=== PATIENT | male | born 1945 | race Caucasian/White ===

== ENCOUNTER 2022-03-17 12:34 | Emergency (ER) | payer MEDICARE ==
[~2022-03-17] VITALS: Ht 177.8 cm; Wt 99.8 kg
[~2022-03-17 12:34] MED LIST: AMLO5 PO; Aspir 8181 MG PO; Calcium Magnes1 EACH; FAMO20; FISH1000 PO; Flomax0.4 MG PO; IBUP200; Icaps Areds Fo1 EACH PO; LISI20 PO; MUSCLE RELAXERS; PRED20 PO; Percocet 5-3251 EACH PO; Prilosec Otc20 MG PO; Saw Palmetto80 MG; VALA500 PO; Zofran4 MG PO; [UNRECOGNIZED DRUG - REMARK]; [UNRECOGNIZED DRUG - REMARK]
== END 2022-03-17 15:25 | disposition home or self-care (01) ==
LOC: ER 12:34
DX: S01.81XA Laceration without foreign body of other part of head, initial encounter (principal); S80.812A Abrasion, left lower leg, initial encounter; S20.212A Contusion of left front wall of thorax, initial encounter; M25.551 Pain in right hip; K21.9 Gastro-esophageal reflux disease without esophagitis; F17.210 Nicotine dependence, cigarettes, uncomplicated; Z79.899 Other long term (current) drug therapy; Z79.82 Long term (current) use of aspirin; V86.59XA Driver of other special all-terrain or other off-road motor vehicle injured in nontraffic accident, initial encounter
CPT/HCPCS: 70450; 71045; 73502; 90714

== ENCOUNTER 2024-05-15 00:24 | Inpatient (IN) | payer OTHER, MEDICARE ==
[~2024-05-15] VITALS: Ht 177.8 cm; Wt 98.1 kg
[~2024-05-15 00:24] MED LIST changes: +FISH OIL 1,4001 EAC2 PO; -FISH1000 PO; -Icaps Areds Fo1 EACH PO; +PRESERVISION A1 EAC1 PO
[2024-05-15] MEDS ORDERED: Lactated Ringer's 1,000 ML IV ONE (00:35)
[2024-05-15] MEDS ORDERED: Diphth,Pertuss(Acell),Tet Vac 0.5 ML VIAL IM ONE (00:35)
[2024-05-15] MEDS ORDERED: Morphine Sulfate 4 MG/1 ML Injection IV ONE (00:35)
[2024-05-15 00:45] LABS: BASOPHILS ABSOLUTE AUTO 0.08 K/mm3 (0.00-0.23); BASOPHILS PERCENT AUTO 1 % (0-2); EOSINOPHILS ABSOLUTE AUTO 0.28 K/mm3 (0.00-0.68); EOSINOPHILS PERCENT AUTO 3 % (0-6); Hematocrit 49.8 % (37.0-53.0); Hemoglobin 17.2 g/dL (13.5-17.5); IMMATURE GRAN ABSOLUTE AUTO 0.09 K/mm3 (0.00-0.10); IMMATURE GRAN PERCENT AUTO 1 % (0-1); LYMPHOCYTES ABSOLUTE AUTO 3.48 K/mm3 (0.84-5.20); LYMPHOCYTES PERCENT AUTO 32 % (21-46); MONOCYTES PERCENT AUTO 10 % (4-13); Mean Corpuscular HGB 31.6 pg (26.0-34.0); Mean Corpuscular HGB Conc 34.5 g/dL (31.5-36.5); Mean Corpuscular Volume 91 fL (80-100); NEUTROPHILS ABSOLUTE AUTO 5.92 K/mm3 (1.96-9.15); NEUTROPHILS PERCENT AUTO 54 % (41-73); Platelet Count 185 K/mm3 (150-400); RDW Coefficient Variation 13.6 % (11.7-14.2); RDW Standard Deviation 46.1 fL (35.1-46.3); Red Blood Cell Count 5.45 M/mm3 (4.30-5.90); White Blood Cell Count 10.95 K/mm3 (4.00-11.30)
[2024-05-15 01:04] LABS: Albumin/Globulin Ratio 1.2 (0.8-1.8); Bilirubin, Total 0.4 mg/dL (0.1-1.0); Bun/Creatinine Ratio 24.5 (12.0-20.0); Calcium, Blood 9.4 mg/dL (8.5-10.1); Creatinine, Blood 0.98 mg/dL (0.60-1.20); Globulin, Blood 3.2 g/dL (2.2-4.0); Potassium, Blood 4.2 mmol/L (3.5-5.5); Total Protein, Blood 7.2 g/dL (6.4-8.2)
[2024-05-15 01:07] LABS: International Normalized Ratio 0.99; Prothrombin Time Results 10.6 Sec (9.7-11.5)
[2024-05-15] MEDS ORDERED: TERB250 PO (01:32)
[2024-05-15] MEDS ORDERED: OMEP20ER PO (01:32)
[2024-05-15] MEDS ORDERED: HYDROmorphone HCl/Pf 1MG SYR IV ONE (03:15)
[2024-05-15 03:29] LABS: Source, Urine Clean Catch
[2024-05-15 03:33] LABS: Bilirubin, Urine Neg (Neg); Blood, Urine 5+ (Neg); Glucose Qualitative, Urine Neg (Neg); Ketones, Urine Neg (Neg); Leukocyte Esterase, Urine Neg (Neg); Nitrite, Urine Neg (Neg); Protein, Urine 2+ (Neg); Specific Gravity, Urine 1.015 (1.003-1.022); Urobilinogen, Urine NORM (Normal)
[2024-05-15] MEDS ORDERED: Lactated Ringer's 1,000 ML IV SCH (04:00)
[2024-05-15] MEDS ORDERED: FLU VACC TS2024-25(6MOS UP)/PF 45 MCG/0.5 ML SYRINGE IM ONE (04:00)
[2024-05-15] MEDS ORDERED: HYDROmorphone HCl/Pf 1MG SYR IV PRN (04:00)
[2024-05-15] MEDS ORDERED: Acetaminophen 325 MG TABLET PO PRN (04:00)
[2024-05-15] MEDS ORDERED: Naloxone HCl 0.4MG / ML 1ML Vial IV PRN (04:00)
[2024-05-15] MEDS ORDERED: OxyCODONE HCL 5 MG TAB PO PRN (04:00)
[2024-05-15] MEDS ORDERED: HydrALAZINE HCl 20 MG / ML 1ML Vial IV PRN (04:00)
[2024-05-15 04:18] LABS: Appearance, Urine Clear (Clear); Color, Urine Yellow (P-Yellow)
[2024-05-15 04:20] LABS: Bacteria Few /hpf; Red Blood Cells, Urine 0-2 /hpf (0-2); Squamous Epithelial Cells Few /hpf (Few); White Blood Cells, Urine 0-2 /hpf (0-5)
[2024-05-15 05:48] VITALS: BP 139/83
[2024-05-15] MEDS ORDERED: Omeprazole 20 MG CapCR PO SCH ×2 (06:00→16:20)
[2024-05-15 07:13] VITALS: BP 139/76
--- NOTE | 2024-05-15 07:30 | NUR ---
PT'S HERB AND SHOULDER SWOLLEN AND FRIM. PT HAS A STRONG RADIAL PULSE ON THE R SIDE. FINGERS ARE WARM. HE IS ABLE TO MOVE HIS FINGERS. R ARM IN SLING. PT REPORTS SOME NUMBNESS TO HIS RIGHT HAND AT BASELINE R/T NEUROPATHY. PT IS ABLE TO FEEL TOUCH. DR. CAMARGO NOTIFIED OF OBSERVATIONS.
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
--- NOTE | 2024-05-15 08:00 | NUR ---
DR. JIMENEZ NOTIFIED THAT PT ARRIVED FROM ER ON 15L NON-REBREATHER BUT SATURATING 98%. NOTIFIED OF PLAN TO TRANSITION PT TO NC. PT TRANSITIONED TO 4L O2 VIA NC AND PT TOLERATING WELL WITH O2 SATURATIONS IN 94-96%.
[2024-05-15] MEDS ORDERED: Docusate Sodium 100 MG Cap PO SCH (09:00)
[2024-05-15] MEDS ORDERED: Nicotine 21 MG PATCH TOP SCH (12:00)
[2024-05-15 15:41] VITALS: BP 145/84
--- NOTE | 2024-05-15 17:25 | NUR ---
DRESSING PLACED OVER R WRIST SKIN TEAR. DRESSING PLACED OVER R KNEE ABRASION.
--- NOTE | 2024-05-15 18:37 | NUR ---
SHIFT SUMMARY PAIN HAS BEEN MANAGED WITH TYLENOL THIS SHIFT. R ARM IN SLING AND SUPPORTED WITH PILLOWS. R UPPER ARM/SHOULDER REMAINS SWOLLEN. ICE APPLIED INTERMITTENTLY FOR COMFORT. PT USES CALL LIGHT APPROPRIATELY. VSS. FAMILY PRESENT AND SUPPORTIVE.
[2024-05-15 19:33] VITALS: BP 142/68
[2024-05-16 03:41] VITALS: BP 150/80
[2024-05-16] MEDS ORDERED: Omeprazole 20 MG CapCR PO SCH (06:00)
[2024-05-16 06:15] LABS: Source, Urine Foley catheter
[2024-05-16 06:17] LABS: Appearance, Urine Clear (Clear); Bilirubin, Urine Neg (Neg); Blood, Urine 1+ (Neg); Color, Urine Yellow (P-Yellow); Glucose Qualitative, Urine Neg (Neg); Ketones, Urine Neg (Neg); Leukocyte Esterase, Urine 1+ (Neg); Nitrite, Urine Neg (Neg); Protein, Urine 2+ (Neg); Urobilinogen, Urine NORM (Normal)
--- NOTE | 2024-05-16 06:25 | NUR ---
TELEMETRY EVENT: 8 BEAT RUN OF V-TACH. CALL RECEIVED FROM TELEMETRY AT 0625 FROM KATHARINA PEÑA THAT PT HAD A 8 BEAT RUN OF VTACH. THIS RN IMMEDIATELY WENT TO PT'S BEDSIDE. PT WAS A/O X4, DENIED SOB OR CHEST PAIN. PT REPORTED FEELING "FINE" BUT HAD DISCOMFORT POST MALHOTRA INSERTION. PT ALSO NOTED TO HAVE INCREASED SWELLING IN RIGHT SHOULDER. WILL CALL HOSPITALIST WITH UPDATE.
[2024-05-16 06:29] LABS: Hyaline Casts 0-2 /lpf (0-2)
[2024-05-16 06:30] LABS: Red Blood Cells, Urine 0-2 /hpf (0-2); White Blood Cells, Urine 0-2 /hpf (0-5)
[2024-05-16 06:31] LABS: Amorphous Light (0-Heavy); Calcium Oxalate Crystals Rare /hpf; Mucus Light (0-Heavy)
[2024-05-16 06:33] LABS: Bacteria Few /hpf; Renal Epithelial Rare /hpf (0-Rare); Squamous Epithelial Cells Rare /hpf (Few)
[2024-05-16 06:42] VITALS: BP 133/71
[2024-05-16 07:25] VITALS: BP 131/74
[2024-05-16 07:43] LABS: Hematocrit 37.3 % (37.0-53.0); Hemoglobin 12.6 g/dL (13.5-17.5); Mean Corpuscular HGB 31.3 pg (26.0-34.0); Mean Corpuscular HGB Conc 33.8 g/dL (31.5-36.5); Mean Corpuscular Volume 93 fL (80-100); Mean Platelet Volume 10.5 fL (9.1-12.4); Platelet Count 146 K/mm3 (150-400); RDW Coefficient Variation 13.6 % (11.7-14.2); RDW Standard Deviation 46.8 fL (35.1-46.3); Red Blood Cell Count 4.02 M/mm3 (4.30-5.90); White Blood Cell Count 10.43 K/mm3 (4.00-11.30)
--- NOTE | 2024-05-16 07:52 | NUR ---
CALL TO HOSPITALIST. CALL TO DR. ALCAZAR AND NOTIFIED DR OF TELE EVENT, PAIN WITH MALHOTRA PLACEMENT, AND INCREASED SWELLING IN RIGHT SHOULDER. NEW ORDERS FOR MAGNESIUM LEVEL ORDERED AND INSTRUCTED TO KEEP MALHOTRA LONG PT IS TOLERATING PLACEMENT. VSS.
--- NOTE | 2024-05-16 07:54 | NUR ---
SHIFT SUMMARY NOC. PT A/O X4, RIGHT SHOULDER IN SLING. ICE PACK IN PLACE, PT DID NOT TOLERATE ICE MOST OF NIGHT. NEW ORDERS FOR MALHOTRA OBTAINED AND PLACED, R/T URINARY RETENTION. URINE SAMPLE SENT TO LAB FOR PROCESSING. PT MEDICATED FOR PAIN WITH REPORTED RELIEF. CAP REFILL AND PULSES INTACT. BED IN LOWEST POSITION, CALL LIGHT IN REACH.
[2024-05-16 08:06] LABS: Bun/Creatinine Ratio 28.6 (12.0-20.0); Calcium, Blood 9.1 mg/dL (8.5-10.1); Creatinine, Blood 0.84 mg/dL (0.60-1.20); Magnesium, Blood 2.3 mg/dL (1.6-2.4); Potassium, Blood 4.4 mmol/L (3.5-5.5)
[2024-05-16] MEDS ORDERED: CALCIUM-MAGNES1 EAC9 PO (11:13)
[2024-05-16 14:56] VITALS: BP 146/75
--- NOTE | 2024-05-16 17:45 | NUR ---
SHIFT SUMMARY PAIN HAS BEEN MANAGED WITH OXYCODONE AND TYLENOL. PT IS A 1 ASSIST WHEN OOB. HE SAT UP TO THE CHAIR TODAY, PT REPORTED INCREASED DISCOMFORT WHEN SITTING UP TO THE CHAIR. PT ENCOURAGED TO USE INCENTIVE SPROMETER. O2 DECREASED TO 3L O2 VIA NC. PT USES CALL LIGHT APPROPRIATELY. FAMILY HAS BEEN AT THE BEDSIDE FOR SUPPORT. R ARM REMAINS SIGNIFICANTLY SWOLLEN, CAP REFIL WNL, PULSE STRONG AND FINGERS WARM. PT TOLERATING R ARM IN SLING WELL.
[2024-05-16 20:19] VITALS: BP 134/80
[2024-05-17 04:18] VITALS: BP 116/79
[2024-05-17 07:14] VITALS: BP 137/67
[2024-05-17] MEDS ORDERED: Polyethylene Glycol 3350 17 gm PO SCH (09:00)
[2024-05-17 10:59] LABS: Hematocrit 35.8 % (37.0-53.0); Hemoglobin 11.9 g/dL (13.5-17.5); Mean Corpuscular HGB 31.3 pg (26.0-34.0); Mean Corpuscular HGB Conc 33.2 g/dL (31.5-36.5); Mean Corpuscular Volume 94 fL (80-100); Mean Platelet Volume 10.7 fL (9.1-12.4); Platelet Count 162 K/mm3 (150-400); RDW Coefficient Variation 13.6 % (11.7-14.2); RDW Standard Deviation 46.3 fL (35.1-46.3); White Blood Cell Count 12.73 K/mm3 (4.00-11.30)
[2024-05-17 13:29] LABS: BASOPHILS PERCENT MAN 0 % (0-2); EOSINOPHILS PERCENT MAN 0 % (0-6); LYMPHOCYTES ABSOLUTE MAN 0.76 K/mm3 (0.84-5.20); LYMPHOCYTES PERCENT MAN 6 % (21-46); MONOCYTES ABSOLUTE MAN 1.52 K/mm3 (0.16-1.47); MONOCYTES PERCENT MAN 12 % (4-13); NEUTROPHILS ABSOLUTE MAN 10.43 K/mm3 (1.96-9.15); SEG NEUTROPHILS PERCENT MAN 82 % (41-73); TOTAL CELLS COUNTED 100
[2024-05-17 14:46] VITALS: BP 158/74
--- NOTE | 2024-05-17 17:24 | NUR ---
SHIFT SUMMARY PT PAIN MANAGED WELL PER EMAR, USING SLING T/O SHIFT. UP IN CHAIR FOR MUCH OF SHIFT. R ARM REMAINS SWOLLEN BUT HAND WARM TO TOUCH AND CAP REFILL <3. REPORTS SENSATION OF NEEDING TO HAVE BOWEL MOVEMENT, MIRALAX GIVENN PER ORDERS. PT REPORTS FEELING BETTER SINCE GETTING UP TO CHAIR. CONTINUES TO USE INCENTIVE SPIROMETER.
[2024-05-17 19:50] VITALS: BP 145/70
[2024-05-18 04:04] VITALS: BP 145/70
--- NOTE | 2024-05-18 05:11 | NUR ---
SHIFT SUMMARY FLORENCIO WAS ALERT AND FULLY ORIENTED ON ASSESMENT. VSS, SWELLING TO R SHOULDER FEELS LESS FIRM/TIGHT. CIRCULATION AND SENSATION TO EXTREMETIES INTACT. PAIN WELL MANAGED. SLING IN PLACE TO R SHOULDER, CATHETER SECURE DRAINING DARK YELLOW URINE. NO ACUTE EVENTS TONIGHT. PT RESTING
[2024-05-18 07:36] VITALS: BP 145/70
--- NOTE | 2024-05-18 10:12 | NUR ---
ASSUMED CARE OF PT AT 0815 WITH REPORT. PT SITTING ON SIDE OF BED AFTER EATING BREAKFAST AND TOLERATING WELL. R ARM IN A SLING. [facility] CHECK WNL. DENIES PAIN AT THIS TIME. ABLE TO TAKE DEEP BREATHS WITH NO PAIN. REPORTS HE DOES HAVE PAIN TO CHEST WHEN HE COUGHS. OT HAS WORKED WITH PT SINCE REPORT AND NOW IN A CHAIR WATCHING TV.
[2024-05-18 15:00] VITALS: BP 148/77
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
--- NOTE | 2024-05-18 16:41 | NUR ---
SHIFT SUMMARY PT UP TO CHAIR THROUGH THE MORNING AND THEN TO BED FOR AN AFTERNOON NAP. 02 NOW AT 2L/M WITH SATS 91% ON CONTINUOUS PULSE OX. MEDICATED FOR PAIN THIS AFTERNOON AFTER SLING CHANGED OUT. DIDN'T EAT LUNCH OFFERED BUT DID EAT CHEETOS GIVEN TO HIM BY FAMILY. PLAN FOR HIM TO STAY THROUGH FRIDAY AND DUE SURGERY ON FRIDAY PER DR. CAMARGO.
[2024-05-18 20:01] VITALS: BP 151/63
[2024-05-19 04:41] VITALS: BP 143/75
--- NOTE | 2024-05-19 06:35 | NUR ---
NOC SHIFT SUMMARY PT ORIENTED X4, VSS, PAIN TO R SHOULDER X1, PRNS GIVEN WITH RELIEF. SEE EMAR FOR DETAILS. SR ON TELE, SVT X1 LASTING APPROXIMATELY 10 SECONDS. PT SLEEPING AND ASYMPTOMATIC. PLEASANT AND COOPERATIVE. R SHOULDER IN SLING, NEUROVASCULAR STATUS INTACT. O2 INCREASED TO 3L DUE TO DESATURATION WHILE SLEEPING INTERMITTENTLY. TOLERATED WELL. WILL PASS ON DAY RN
[2024-05-19 06:56] VITALS: BP 146/78
[2024-05-19 06:57] VITALS: BP 146/78
[2024-05-19] MEDS ORDERED: Magnesium Hydroxide Conc 10 ML UDC PO PRN (10:20)
[2024-05-19] MEDS ORDERED: Docusate Sodium/Senna 1 Tab PO SCH (10:20)
--- NOTE | 2024-05-19 14:08 | NUR ---
PT SAT ON BSC FOR APPROX 40 MIN. PT HAD GAS BUT UNABLE TO PRODUCE BM. PT ASSISTED BACK TO BED. CALL LIGHT IN REACH.
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
[2024-05-19 15:04] VITALS: BP 154/76
--- NOTE | 2024-05-19 16:23 | NUR ---
SHIFT SUMMARY PT DID WELL TODAY AND WAS MEDICATED ONCE WITH PAIN MEDICINE. R ARM IN SLING. TRIED TO HAVE BM TODAY BUT WAS ONLY PASSING GAS. ADDITIONAL MEDS ADDED TO EMAR TO ASSIST WITH CONSTIPATION. PLAN IS TO BE NPO AFTER MID-NIGHT WITH SHOULDER SURGERY TOMORROW. PT HAS BEEN ON ROOM AIR O2 AND BIOX IN LOW 90'S WHICH WAS ACCEPTABLE DUE TO SMOKING HISTORY. PT HAD MULTIPLE VISITORS DURING THE SHIFT WHICH KEPT HIM IN GOOD SPIRITS. NO ISSUES NOTED.
[2024-05-19 19:12] VITALS: BP 143/65
[2024-05-19] MEDS ORDERED: Polyethylene Glycol 3350 17 gm PO SCH (21:00)
[2024-05-20 03:07] VITALS: BP 156/77
[2024-05-20 05:13] LABS: BASOPHILS ABSOLUTE AUTO 0.05 K/mm3 (0.00-0.23); BASOPHILS PERCENT AUTO 1 % (0-2); EOSINOPHILS ABSOLUTE AUTO 0.19 K/mm3 (0.00-0.68); EOSINOPHILS PERCENT AUTO 2 % (0-6); Hemoglobin 10.2 g/dL (13.5-17.5); IMMATURE GRAN ABSOLUTE AUTO 0.09 K/mm3 (0.00-0.10); IMMATURE GRAN PERCENT AUTO 1 % (0-1); LYMPHOCYTES ABSOLUTE AUTO 1.04 K/mm3 (0.84-5.20); LYMPHOCYTES PERCENT AUTO 10 % (21-46); MONOCYTES ABSOLUTE AUTO 2.01 K/mm3 (0.16-1.47); MONOCYTES PERCENT AUTO 19 % (4-13); Mean Corpuscular HGB 31.5 pg (26.0-34.0); Mean Corpuscular Volume 93 fL (80-100); Mean Platelet Volume 10.1 fL (9.1-12.4); NEUTROPHILS ABSOLUTE AUTO 7.46 K/mm3 (1.96-9.15); NEUTROPHILS PERCENT AUTO 69 % (41-73); Platelet Count 213 K/mm3 (150-400); RDW Coefficient Variation 13.2 % (11.7-14.2); RDW Standard Deviation 45.1 fL (35.1-46.3); Red Blood Cell Count 3.24 M/mm3 (4.30-5.90); White Blood Cell Count 10.84 K/mm3 (4.00-11.30)
[2024-05-20 05:36] LABS: Bun/Creatinine Ratio 22.2 (12.0-20.0); Calcium, Blood 8.9 mg/dL (8.5-10.1); Creatinine, Blood 0.85 mg/dL (0.60-1.20); Potassium, Blood 4.2 mmol/L (3.5-5.5)
--- NOTE | 2024-05-20 06:30 | NUR ---
SHIFT SUMMARY NOC. PT A/O X4, RIGHT SHOULDER IN SLING, POLAR PACK IN PLACE. MALHOTRA PATENT AND DRAINING TO GRAVITY. PT NPO SINCE 0000 ASIDE FROM ORAL PAIN MEDS X1 THIS AM. SIGNIFICANT BRUSING NOTED ON RIGHT SHOULDER AND ARM, CAP REFILL LESS THAN 3 SECONDS SENSATION AT BASELINE D/T HX OF NEUROPATHY. BED IN LOWEST POSITION, CALL LIGHT IN REACH.
[2024-05-20 07:31] VITALS: BP 158/100
[2024-05-20 07:32] VITALS: BP 166/80
[2024-05-20] MEDS ORDERED: NS 1,000 ML IV SCH (08:35)
--- NOTE | 2024-05-20 09:47 | NUR ---
PT REPORTED HAVING SOME QUESTIONS ABOUT THE SURGERY THAT IS PLANNED FOR PT'S RIGHT SHOULDER. DR. VALENZUELA NOTIFIED THAT PT WOULD LIKE TO TALK WITH HER REGARDING SURGICAL PLAN OF CARE.
[2024-05-20] MEDS ORDERED: Polyethylene Glycol 3350 17 gm PO ONE (13:20)
[2024-05-20] MEDS ORDERED: Docusate Sodium/Senna 1 Tab PO ONE (13:20)
[2024-05-20 14:45] VITALS: BP 153/84
--- NOTE | 2024-05-20 18:35 | NUR ---
SHIFT SUMMARY PAIN HAS BEEN MANAGED WITH TYLENOL AND OXYCODONE. PT IS A 1 ASSIST WHEN OOB. BOWEL CARE CONTINUED TODAY. PLAN FOR SURGERY POSSIBLY TOMORROW, PT WILL BE NPO AT MIDNIGHT. PT USES CALL LIGHT APPROPRIATELY. FAMILY AT BEDSIDE FOR SUPPORT.
[2024-05-20 20:23] VITALS: BP 152/72
[2024-05-21] VITALS (21 sets, daily range): BP systolic 114–160; BP diastolic 52–100
--- NOTE | 2024-05-21 04:56 | NUR ---
SHIFT SUMMARY NOC. PT A/O X4, RIGHT SHOULDER IN SLING WITH POLAR PACK IN PLACE. MALHOTRA PATENT AND DRAINING TO GRAVITY. FLUIDS RUNNING PER EMAR. PT NPO SINCE 0000 ASIDE FROM SIP OF WATER FOR ORAL PAIN PILLS. CAP REFILL LESS THAN 3 SECONDS, SENSATION INTACT AT BASELINE, HX OF NEUROPATHY. BED IN LOWEST POSITION, CALL LIGHT IN REACH.
[2024-05-21 05:29] LABS: BASOPHILS ABSOLUTE AUTO 0.07 K/mm3 (0.00-0.23); BASOPHILS PERCENT AUTO 1 % (0-2); EOSINOPHILS ABSOLUTE AUTO 0.11 K/mm3 (0.00-0.68); EOSINOPHILS PERCENT AUTO 1 % (0-6); Hematocrit 30.3 % (37.0-53.0); Hemoglobin 10.1 g/dL (13.5-17.5); IMMATURE GRAN ABSOLUTE AUTO 0.15 K/mm3 (0.00-0.10); IMMATURE GRAN PERCENT AUTO 1 % (0-1); LYMPHOCYTES ABSOLUTE AUTO 1.21 K/mm3 (0.84-5.20); LYMPHOCYTES PERCENT AUTO 9 % (21-46); MONOCYTES ABSOLUTE AUTO 2.34 K/mm3 (0.16-1.47); MONOCYTES PERCENT AUTO 17 % (4-13); Mean Corpuscular HGB Conc 33.3 g/dL (31.5-36.5); Mean Corpuscular Volume 93 fL (80-100); Mean Platelet Volume 9.9 fL (9.1-12.4); NEUTROPHILS ABSOLUTE AUTO 10.07 K/mm3 (1.96-9.15); NEUTROPHILS PERCENT AUTO 72 % (41-73); Platelet Count 249 K/mm3 (150-400); RDW Coefficient Variation 13.3 % (11.7-14.2); RDW Standard Deviation 45.3 fL (35.1-46.3); Red Blood Cell Count 3.26 M/mm3 (4.30-5.90); White Blood Cell Count 13.95 K/mm3 (4.00-11.30)
[2024-05-21 06:01] LABS: Bun/Creatinine Ratio 28.7 (12.0-20.0); Calcium, Blood 8.9 mg/dL (8.5-10.1); Creatinine, Blood 0.8 mg/dL (0.60-1.20); Potassium, Blood 4.1 mmol/L (3.5-5.5)
[2024-05-21] MEDS ORDERED: CeFAZolin Sodium 2,000 MG in NS 100 ML IV SCH (09:15)
[2024-05-21] MEDS ORDERED: Lactated Ringer's 1,000 ML IV SCH (09:15)
[2024-05-21] MEDS ORDERED: Chlorhexidine Mouth Care 15 ML UDC MT SCH ×2 (09:15→09:55)
[2024-05-21] MEDS ORDERED: Acetaminophen 500 MG Tab PO SCH (09:15)
[2024-05-21] MEDS ORDERED: Tranexamic Acid 100 ML IV SCH (09:18)
--- NOTE | 2024-05-21 09:35 | NUR ---
Gone for Procedure Pt A&O x4. VSS. Spo2 > 92% on 1L NC. Pt w/ harsh, nonproductive cough. Monitor showing SR w/ BBB & PVCs. R arm in sling w/ cooling pad in place. Lobo cath patent & draining yellow urine. Pt NPO, taken for surgery at approx 0930.
[2024-05-21] MEDS ORDERED: Ondansetron HCl 2 MG / ML 2ML Vial ONE ×3 (09:46→15:15)
[2024-05-21] MEDS ORDERED: Midazolam HCl 1MG / ML 2ML Vial ONE (09:46)
[2024-05-21] MEDS ORDERED: Dexamethasone Sod Phos 10 MG/ML 1ML VIAL ONE (09:46)
[2024-05-21] MEDS ORDERED: FentaNYL Citrate 50 MCG/ML 2 ML Injection ONE ×2 (09:46→13:41)
[2024-05-21] MEDS ORDERED: Lidocaine HCl 2% 20 ML MDV ONE (09:46)
[2024-05-21] MEDS ORDERED: propofoL 20 ML IV ONE ×2 (09:46→13:39)
[2024-05-21] MEDS ORDERED: Bupivacaine 0.5% HCl 5 MG/ML 30MLVIAL ONE (09:49)
[2024-05-21] MEDS ORDERED: Lidocaine 2%-Epineph 1:200000 20 ML SDV ONE (09:55)
--- NOTE | 2024-05-21 09:59 | NUR ---
TIME OUT FOR SUPER CLAVIC BLOCK BY DR HUMPHREY.
--- NOTE | 2024-05-21 10:07 | NUR ---
PT TO SDS WITH 20G IV IN PT LEFT AC AND 24G IV IN LEFT FA
--- NOTE | 2024-05-21 10:08 | NUR ---
PROCEDURE STARTED BY DR HUMPHREY WITH DR SCHAFER AT BEDSIDE. PT IS ON 2L 02. VERSED AND FENTANYL GIVEN PRIOR TO PROCEDURE BY DR HUMPHREY. SA02 PROBE ON PT
[2024-05-21] MEDS ORDERED: Phenylephrine HCl 100 MCG/ML-NS 10MLSYR (1MG/10ML) ONE (10:39)
[2024-05-21] MEDS ORDERED: ePHEDrine Sulfate 50 MG/ML 1ML Injection ONE (10:43)
[2024-05-21] MEDS ORDERED: Phenylephrine HCl 10mg/ml 1 ml Vial ONE (12:12)
--- NOTE | 2024-05-21 15:40 | NUR ---
ARRIVAL FROM PACU PT ARRIVES FROM PACU AROUND 1530. REPORT RECIEVED FROM PACU NURSE. TXA FINISHING UP, DRIPPING TO GRAVITY. DRESSING TO RIGHT SHOULDER INTACT, MINIMAL OOZING MARKED, BY PACU NURSE. SBP STABLE, HR IN THE 80'S. O2 >90% ON 2L VIA NC. WILL CONTINUE TO MONITOR PT.
--- NOTE | 2024-05-21 16:49 | NUR ---
Shift Summary PT ALERT AND ORIENTED TO ALL. PT POST OP ORIF OF RIGHT HUMEROUS. DRESSING WITH SOME OOZING, MARKED BY EMPLOYEE OPERATIONS EXAMINER. SBP STABLE, HR IN THE 80'S, 02 >92% ON 2L VIA NC. PT DENIES HAVING PAIN AT THIS TIME. WILL MANAGE PER EMAR. MALHOTRA INTACT, DRAINING TO GRAVITY. FAMILY AT BEDSIDE. WILL MONITOR AND REPORT TO NEXT NURSE.
--- NOTE | 2024-05-21 18:16 | NUR ---
THIS NURSE ASSUMING CARE OF PATIENT. POD 0 ORIF OF RIGHT HUMEROUS. AQUACEL DRESSING WITH SMALL AMOUNT OF DRAINAGE, OUTLINED WITH MARKER AND REMAINING WITHIN MARGINS. A&O X4, VSS. 2L NC. EATING AND DRINKING WITHOUT DIFFICULTY. CATHETER DRAINING YELLOW URINE. PAIN MANAGED AT THIS TIME.
[2024-05-22 03:39] VITALS: BP 149/83
--- NOTE | 2024-05-22 04:13 | NUR ---
SHIFT SUMMARY POD1 R HUMERAL ORIF. AQUACEL REMAINS C/D/I, MINIMAL SS DRAINAGE NOTED. SIGNIFIGANT SWELLING AND BRUISING NOTED IN THIS EXTREMITY. IT HAS REMAINED ON A PILLOW W/ A POLAR PACK. GOOD CAP REFILL, STRONG RADIAL PULSE, AND PT CAN WIGGLE HIS FINGERS ON COMMAND. JEY MORE FEELS HEAVY. PAIN HAS SLOWLY INCREASED T/O THE NIGHT, MEDICATED PER EMAR W/OKAY RESULTS. PT IS STOIC. PT TOLLERATED AMBULATING TO THE [facility] X2 FOR A BM. THEY WERE BOTH LIQUID. BLADDER TRAINING OCCURED T/O THE NIGHT. PT ONLY FELT THE URGE TO VOID TWICE GOOD URINE OUTPUT. GOOD PO INTAKE. VSS, O2 HAS BEEN WEANED TO RA/1L. PTDENIES INCREASE IN WOB OR CP. OVERALL, NO ACUTE EVENTS NOTED T/O THE NIGHT. PLAN TO BEGIN THERAPY AND CONTINUE PAIN MANAGEMENT. THE PATIENT IS CURRENTLY SLEEPING, IN NO DISTRESS, CALL LIGHT IN REACH
[2024-05-22 05:21] LABS: BASOPHILS ABSOLUTE AUTO 0.03 K/mm3 (0.00-0.23); BASOPHILS PERCENT AUTO 0 % (0-2); EOSINOPHILS PERCENT AUTO 0 % (0-6); Hematocrit 27.6 % (37.0-53.0); Hemoglobin 9.3 g/dL (13.5-17.5); IMMATURE GRAN ABSOLUTE AUTO 0.15 K/mm3 (0.00-0.10); IMMATURE GRAN PERCENT AUTO 1 % (0-1); LYMPHOCYTES ABSOLUTE AUTO 0.87 K/mm3 (0.84-5.20); LYMPHOCYTES PERCENT AUTO 5 % (21-46); MONOCYTES ABSOLUTE AUTO 2.88 K/mm3 (0.16-1.47); MONOCYTES PERCENT AUTO 18 % (4-13); Mean Corpuscular HGB 31.3 pg (26.0-34.0); Mean Corpuscular HGB Conc 33.7 g/dL (31.5-36.5); Mean Corpuscular Volume 93 fL (80-100); Mean Platelet Volume 9.3 fL (9.1-12.4); NEUTROPHILS ABSOLUTE AUTO 12.43 K/mm3 (1.96-9.15); NEUTROPHILS PERCENT AUTO 76 % (41-73); Platelet Count 246 K/mm3 (150-400); RDW Coefficient Variation 13.4 % (11.7-14.2); RDW Standard Deviation 45.6 fL (35.1-46.3); Red Blood Cell Count 2.97 M/mm3 (4.30-5.90); White Blood Cell Count 16.36 K/mm3 (4.00-11.30)
[2024-05-22 05:51] LABS: Bun/Creatinine Ratio 30.3 (12.0-20.0); Calcium, Blood 8.7 mg/dL (8.5-10.1); Creatinine, Blood 0.69 mg/dL (0.60-1.20); Potassium, Blood 4.4 mmol/L (3.5-5.5)
[2024-05-22 07:10] VITALS: BP 154/79
--- NOTE | 2024-05-22 08:52 | NUR ---
DRESSING TO R ELBOW CHANGED. PT HAS SMALL SKIN TEAR FROM SWELLING SUPERIOR TO R ELBOW, HEAVY SEROUS FLUID OOZING OUT. PLACED ABSORBENT PAD ON ELBOW HELD IN PLACE WITH SLING. NOTIFIED PRIMARY RN OF CHANGE. PT TOLERATES WELL AND DENIES PAIN TO THAT AREA OF ARM.
[2024-05-22 14:38] VITALS: BP 157/87
--- NOTE | 2024-05-22 18:09 | NUR ---
SHIFT SUMMARY POD1 R SHOULDER ORIF, A/OX4, VSS, TOLERATING PO, PAIN MANAGED PER EMAR, ABLE TO USE BSC T/O THE SHIFT, MALHOTRA IN PLACE WITH BLADDER TRAINING STARTED DURING PRIOR NOC SHIFT, WILL DC TOMORROW UNLESS PROVIDER STATES OTHERWISE, UP TO CHAIR THROUGH MOST OF THE SHIFT TODAY, ICE TO R SHOULDER FOR SWELLING. NO ACUTE EVENTS THIS SHIFT, CALL LIGHT IN REACH.
[2024-05-22 18:41] VITALS: BP 145/71
--- NOTE | 2024-05-23 04:20 | NUR ---
SHIFT SUMMARY POD1 R SHOULDER ORIF. PAIN MANAGED UTILIZING NPIS AND PER EMAR. RUE IN SLING, CRYO MACHINE IN PLACE. RUE WITH MARKED SWELLING. CMS INTACT DISTAL TO INCISION. AQUACELL TO INCISION C/D/I, SMALL AMOUNT OF DRAINAGE / SHADOW AT LOWER PORTION OF AQUACELL. UNCHANGED DRAINAGE OVER SHIFT. PT ABLE TO REST DURING SHIFT. PT VOICED UNDERSTANDING OF PLAN OF CARE, DENIES QUESTIONS/CONCERNS AT THIS TIME.
[2024-05-23 05:19] VITALS: BP 153/80
[2024-05-23 07:11] VITALS: BP 168/74
[2024-05-23] MEDS ORDERED: MIRALAX17 GM PO (12:27)
[2024-05-23] MEDS ORDERED: Percocet 5-3251 EACH PO (12:28)
--- NOTE | 2024-05-23 13:56 | NUR ---
DISCHARGE SUMMARUY POD2 R SHOULDER ORIF, A/OX4, VSS, TOLERATING PO, PAIN WELL MANAGED, MALHOTRA REMOVED TODAY AND ABLE TO VOID POST REMOVAL, MULTIPLE BM'S TODAY. AQUACELL DRESSING CHANGED D/T MODERATE AMT OF DRAINAGE ON DISTEAL END, MEPITEL DRESSING TO L WRIST CHANGED D/T IT PEELING UP ON BOTH ENDS. DISCUSSED DC INSTRUCTIONS INCLUDING HOME CARE, MEDICATIONS, AND FOLLOW UP APPOINTMENTS. NO QUESTIONS AT THIS TIME, ADDITIONAL DRESSINGS PROVIDED FOR CHANGING AT HOME PRIOR TO FOLLOW UP.
== END 2024-05-23 13:42 | disposition home health service (06) | DRG 493 ==
LOC: ER 00:24 → SURS 03:56
PROVIDERS: Family Medicine; Orthopaedic Surgery; Student in an Organized Health Care Education/Training Program; ADMIT Surgery
PROC: 0PSC04Z Reposition Right Humeral Head with Internal Fixation Device, Open Approach (ICD-10-PCS; principal; 2024-05-21 10:00)
DX: S42.211A Unspecified displaced fracture of surgical neck of right humerus, initial encounter for closed fracture (principal); E87.1 Hypo-osmolality and hyponatremia; S22.31XA Fracture of one rib, right side, initial encounter for closed fracture; S27.0XXA Traumatic pneumothorax, initial encounter; S42.201A Unspecified fracture of upper end of right humerus, initial encounter for closed fracture; V69.49XA Driver of heavy transport vehicle injured in collision with other motor vehicles in traffic accident, initial encounter; S01.411A Laceration without foreign body of right cheek and temporomandibular area, initial encounter; S51.812A Laceration without foreign body of left forearm, initial encounter; S51.811A Laceration without foreign body of right forearm, initial encounter; K59.00 Constipation, unspecified; Z66 Do not resuscitate; Z79.899 Other long term (current) drug therapy; Z79.82 Long term (current) use of aspirin; Z79.891 Long term (current) use of opiate analgesic; M54.9 Dorsalgia, unspecified; G89.29 Other chronic pain; K21.9 Gastro-esophageal reflux disease without esophagitis; I10 Essential (primary) hypertension; Z90.89 Acquired absence of other organs; Z98.890 Other specified postprocedural states; F17.210 Nicotine dependence, cigarettes, uncomplicated; G89.11 Acute pain due to trauma; Z71.6 Tobacco abuse counseling; D64.9 Anemia, unspecified
CPT/HCPCS: 36415; 51702; 70450; 70486; 71045; 71260; 72125; 73030; 73090; 73130; 73200; 73201; 74177; 80048; 80053; 81001; 83690; 83735; 84484; 85007; 85025; 85027; 85610; 85730; 86850; 86900; 86901; 87086; 90471; 90715; 94762; 96361; 96374-59; 96375-59; 97110; 97112; 97161; 97165; 97530; 97535; 99285-25; A9270; J0690; J1100; J1170; J2250; J2270; J2371; J2405; J2704; J3010; J7030; J7120; Q9967

== ENCOUNTER 2024-06-02 14:14 | Emergency (ER) | payer OTHER, MEDICARE ==
[~2024-06-02] VITALS: Ht 177.8 cm; Wt 99.8 kg
[~2024-06-02 14:14] MED LIST changes: +CALCIUM-MAGNES1 EAC9 PO; +MIRALAX17 GM PO; +OMEP20ER PO; +TERB250 PO
[2024-06-02 16:03] LABS: BASOPHILS ABSOLUTE AUTO 0.06 K/mm3 (0.00-0.23); BASOPHILS PERCENT AUTO 1 % (0-2); EOSINOPHILS ABSOLUTE AUTO 0.12 K/mm3 (0.00-0.68); EOSINOPHILS PERCENT AUTO 1 % (0-6); IMMATURE GRAN ABSOLUTE AUTO 0.07 K/mm3 (0.00-0.10); IMMATURE GRAN PERCENT AUTO 1 % (0-1); LYMPHOCYTES ABSOLUTE AUTO 1.33 K/mm3 (0.84-5.20); LYMPHOCYTES PERCENT AUTO 12 % (21-46); MONOCYTES ABSOLUTE AUTO 1.26 K/mm3 (0.16-1.47); MONOCYTES PERCENT AUTO 12 % (4-13); Mean Corpuscular HGB Conc 32.4 g/dL (31.5-36.5); Mean Corpuscular Volume 96 fL (80-100); Mean Platelet Volume 9.3 fL (9.1-12.4); NEUTROPHILS ABSOLUTE AUTO 8.07 K/mm3 (1.96-9.15); NEUTROPHILS PERCENT AUTO 74 % (41-73); Platelet Count 344 K/mm3 (150-400); RDW Standard Deviation 52.6 fL (35.1-46.3); Red Blood Cell Count 3.55 M/mm3 (4.30-5.90); White Blood Cell Count 10.91 K/mm3 (4.00-11.30)
[2024-06-02 16:28] LABS: Albumin, Blood 3.1 g/dL (3.4-5.0); Albumin/Globulin Ratio 0.9 (0.8-1.8); Bilirubin, Total 0.6 mg/dL (0.1-1.0); Bun/Creatinine Ratio 21.6 (12.0-20.0); Calcium, Blood 8.9 mg/dL (8.5-10.1); Creatinine, Blood 0.88 mg/dL (0.60-1.20); Globulin, Blood 3.6 g/dL (2.2-4.0); Total Protein, Blood 6.7 g/dL (6.4-8.2)
[2024-06-02 18:30] VITALS: BP 162/86
== END 2024-06-02 19:16 | disposition home or self-care (01) ==
LOC: ER 14:14
PROVIDERS: Physician Assistant
DX: M79.675 Pain in left toe(s) (principal); I70.202 Unspecified atherosclerosis of native arteries of extremities, left leg; I10 Essential (primary) hypertension; J44.9 Chronic obstructive pulmonary disease, unspecified; K21.9 Gastro-esophageal reflux disease without esophagitis; F17.210 Nicotine dependence, cigarettes, uncomplicated; Z79.899 Other long term (current) drug therapy
CPT/HCPCS: 80053; 85025; 93926; 99284-25

== ENCOUNTER 2024-06-19 15:30 | Inpatient (IN) | payer MEDICARE ==
[~2024-06-19] VITALS: Ht 177.8 cm; Wt 93.3 kg
[2024-06-19 16:44] LABS: BASOPHILS ABSOLUTE AUTO 0.06 K/mm3 (0.00-0.23); BASOPHILS PERCENT AUTO 1 % (0-2); EOSINOPHILS PERCENT AUTO 2 % (0-6); Hematocrit 40.6 % (37.0-53.0); Hemoglobin 13.4 g/dL (13.5-17.5); IMMATURE GRAN ABSOLUTE AUTO 0.02 K/mm3 (0.00-0.10); IMMATURE GRAN PERCENT AUTO 0 % (0-1); LYMPHOCYTES ABSOLUTE AUTO 1.35 K/mm3 (0.84-5.20); LYMPHOCYTES PERCENT AUTO 15 % (21-46); MONOCYTES ABSOLUTE AUTO 0.92 K/mm3 (0.16-1.47); MONOCYTES PERCENT AUTO 10 % (4-13); Mean Corpuscular Volume 94 fL (80-100); Mean Platelet Volume 9.5 fL (9.1-12.4); NEUTROPHILS PERCENT AUTO 72 % (41-73); Platelet Count 205 K/mm3 (150-400); RDW Coefficient Variation 14.5 % (11.7-14.2); RDW Standard Deviation 50.4 fL (35.1-46.3); Red Blood Cell Count 4.32 M/mm3 (4.30-5.90); White Blood Cell Count 8.95 K/mm3 (4.00-11.30)
[2024-06-19 17:05] LABS: Albumin, Blood 3.4 g/dL (3.4-5.0); Bilirubin, Total 0.4 mg/dL (0.1-1.0); Bun/Creatinine Ratio 26.2 (12.0-20.0); Calcium, Blood 8.8 mg/dL (8.5-10.1); Creatinine, Blood 0.73 mg/dL (0.60-1.20); Globulin, Blood 3.5 g/dL (2.2-4.0); Potassium, Blood 3.9 mmol/L (3.5-5.5); Total Protein, Blood 6.9 g/dL (6.4-8.2)
[2024-06-19] MEDS ORDERED: HydrALAZINE HCl 25 MG Tab PO PRN (17:45)
[2024-06-19] MEDS ORDERED: FLU VACC TS2024-25(6MOS UP)/PF 45 MCG/0.5 ML SYRINGE IM SCH (17:45)
[2024-06-19] MEDS ORDERED: Lisinopril 5 MG Tab PO SCH (18:00)
[2024-06-19 20:45] VITALS: BP 130/90
[2024-06-20] VITALS (7 sets, daily range): BP systolic 144–171; BP diastolic 81–126
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
[2024-06-20 05:37] LABS: CHOL/HDL RATIO 5.8; Cholesterol 157 mg/dL (50-200); HDL Cholesterol 27 mg/dL (>39); LDL/HDL RATIO 3.9; Low Density Lipoprotein Chol 104 mg/dL (0-110); Triglycerides 129 mg/dL (30-160); Very Low Density Lipoprot Chol 25 mg/dL (6-32)
[2024-06-20] MEDS ORDERED: Omeprazole 20 MG CapCR PO SCH (06:00)
[2024-06-20] MEDS ORDERED: Aspirin 81 MG Chew PO SCH (09:00)
[2024-06-20] MEDS ORDERED: Enoxaparin 40 MG/0.4 ML SYR SC SCH (09:00)
[2024-06-20] MEDS ORDERED: Acetaminophen 325 MG TABLET PO PRN (11:45)
[2024-06-20] MEDS ORDERED: Melatonin 3 MG Tab PO PRN (11:45)
[2024-06-20] MEDS ORDERED: TraMADol HCl 50 MG Tab PO PRN (11:45)
--- NOTE | 2024-06-20 13:05 | NUR ---
CALLED DR. RUBIO AND REVASCULARIZATION SCHEDULED FOR FRIDAY. REGULAR DIET ORDERED. DR. SALVADOR INFORMED AND AMPUTATION NOW SCHEDULED FOR FRIDAY. DR. DALEY INFORMED AND ALSO REQUESTED TO START ANTIBIOTICS DR. SALVADOR STATED PATIENT NEEDED TO START. DR. DALEY STATED WOULD PLACE ORDER.
[2024-06-20] MEDS ORDERED: NS 250 ML IV PRN (13:15)
[2024-06-20] MEDS ORDERED: CefTRIAXone Sodium 1,000 MG in NS 100 ML IV SCH (13:30)
--- NOTE | 2024-06-20 18:09 | NUR ---
SHIFT SUMMARY PATIENT A/OX4, ABLE TO MAKE NEEDS KNOWN. STAND BY ASSIST WITH AMBULATION IN ROOM. PLEASANT AND COOPERATIVE WITH CARE. BP ELEVATED THIS MORNING, SCHEDULED [place] EFFECTIVE. REVASCULARIZATION SCHEDULED FOR 06/23/[address] 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 PATIENT STARTED ON IV ABX THIS AFTERNOON. WOUND CARE PROVIDED PER ORDERS TO PRESSURE INJURY TO BUTTOCK. GANGRENOUS TOES TO LEFT FOOT ARE DRY AND OPEN TO AIR, NO CHANGES NOTED THIS SHIFT. PATIENT DENIES PAIN. DRY HACKING COUGH NOTED. FAMILY VISITED PATIENT THROUGHOUT THE SHIFT AND WERE UPDATED ON PATIENT STATUS AND PLAN FOR PROCEDURES. NO OTHER CONCERNS AT THIS TIME.
[2024-06-20] MEDS ORDERED: Sennosides 8.6 MG Tab PO SCH (21:00)
[2024-06-20] MEDS ORDERED: Docusate Sodium 100 MG Cap PO SCH (21:00)
[2024-06-21 06:45] VITALS: BP 147/114
[2024-06-21 07:59] VITALS: BP 187/132
--- NOTE | 2024-06-21 08:29 | NUR ---
pt sitting up in a chair, Dr. Madrid in to see him this am, pt is a/ox4, pleasant and cooperative with care, follows commands well, denies any complaints of pain, lungs are clear t/o, dim in bases, resp even and unlabored, no cough noted, hrr, edema noted to b/l le, cap refill <3 sec, vs stable, afebrile, piv to lac site is clear and patent, btx4, abd flat soft nontender, voids without diff, skin has healing surgical wound to right shoulder, left pinky to is discolored, maew, up ad carlotta in room, ernie, call light in reach.
[2024-06-21] MEDS ORDERED: Lisinopril 10 MG Tab PO SCH (09:00)
[2024-06-21] MEDS ORDERED: Triamter/HCthiazide 37.5/25 MG 1 Tab PO SCH (10:00)
[2024-06-21 15:37] VITALS: BP 138/118
[2024-06-21] MEDS ORDERED: Atorvastatin 10 MG Tab PO SCH (18:00)
--- NOTE | 2024-06-21 18:11 | NUR ---
pt sat up in chair all shift, watching football, has denied pain throughout the day, no acute changes this shift. call light in reach.
[2024-06-21 19:32] VITALS: BP 160/102
[2024-06-22 02:00] VITALS: BP 152/77
--- NOTE | 2024-06-22 04:59 | NUR ---
CERTIFIED RESPIRATORY THERAPIST SUMMARY PT IS A/OX4. NO ACUTE CHANGES. ABLE TO MAKE NEEDS KNOWN. PT SLEPT SITTING UP IN RECLINER INTERMITTANTLY T/O THE NIGHT. OBSERVED GANGRENE TO LEFT FOOT/DIGITS. FOOT IS SWOLLEN, BLACK TISSUE OBSERVED PRIMARILY ON 5TH DIGIT WITH SPOTS APPEARIN ERIN 1,2, AND 4TH DIGIT. PT DENIES PAIN AND REFUSES PAIN MED INTERVENTION WHEN OFFERED. OBSERVED PRESSURE INJUR TO COCCYX. WOUNDS CLEANSED, APPLIED BARRIER CREAM, AND APPLIED MEPILEX TO PROTECT THE WOUND. PT TOLERATED WELL. CALL HAS BEEN INDEPENDENT IN THE ROOM. CALLS APPROPREATELY. CALL LIGHT ACCESSIBLE. Q2 HOURLY ROUNDING COMPLETE. NEEDS ASSESSED AND MET T/O SIFT. WCTM.
[2024-06-22 05:27] LABS: BASOPHILS ABSOLUTE AUTO 0.04 K/mm3 (0.00-0.23); BASOPHILS PERCENT AUTO 1 % (0-2); EOSINOPHILS ABSOLUTE AUTO 0.23 K/mm3 (0.00-0.68); EOSINOPHILS PERCENT AUTO 3 % (0-6); Hematocrit 42.1 % (37.0-53.0); Hemoglobin 13.6 g/dL (13.5-17.5); IMMATURE GRAN ABSOLUTE AUTO 0.03 K/mm3 (0.00-0.10); IMMATURE GRAN PERCENT AUTO 0 % (0-1); LYMPHOCYTES ABSOLUTE AUTO 1.53 K/mm3 (0.84-5.20); LYMPHOCYTES PERCENT AUTO 20 % (21-46); MONOCYTES PERCENT AUTO 12 % (4-13); Mean Corpuscular HGB 30.2 pg (26.0-34.0); Mean Corpuscular HGB Conc 32.3 g/dL (31.5-36.5); Mean Corpuscular Volume 94 fL (80-100); Mean Platelet Volume 10.3 fL (9.1-12.4); NEUTROPHILS ABSOLUTE AUTO 5.13 K/mm3 (1.96-9.15); NEUTROPHILS PERCENT AUTO 65 % (41-73); Platelet Count 222 K/mm3 (150-400); RDW Coefficient Variation 14.2 % (11.7-14.2); RDW Standard Deviation 48.9 fL (35.1-46.3); White Blood Cell Count 7.86 K/mm3 (4.00-11.30)
[2024-06-22 05:51] LABS: Bun/Creatinine Ratio 22.4 (12.0-20.0); Calcium, Blood 9.2 mg/dL (8.5-10.1); Creatinine, Blood 0.8 mg/dL (0.60-1.20); Potassium, Blood 3.9 mmol/L (3.5-5.5)
[2024-06-22 07:48] VITALS: BP 158/82
[2024-06-22] MEDS ORDERED: Terbinafine 250 MG Tab PO SCH (09:00)
[2024-06-22 15:45] VITALS: BP 153/79
--- NOTE | 2024-06-22 19:10 | NUR ---
RECEIVED REPORT FROM DELL OVIEDO. DELL GARCIA WILL ASSUME CARE AT [address] [facility].
[2024-06-22 19:30] VITALS: BP 145/96
--- NOTE | 2024-06-22 19:34 | NUR ---
uneventful day for pt. pt sat in chair and was independant in room able to make needs known. 1700 dr cui into see pt and explained plan for the next couple of day and procedure tomorrow. pt to be NPO for procedure in the morning, pt verbalized understanding
--- NOTE | 2024-06-22 20:15 | NUR ---
REPORT GIVEN TO DELL GARCAI.
[2024-06-23 03:34] VITALS: BP 148/110
[2024-06-23 05:15] LABS: BASOPHILS ABSOLUTE AUTO 0.05 K/mm3 (0.00-0.23); BASOPHILS PERCENT AUTO 1 % (0-2); EOSINOPHILS ABSOLUTE AUTO 0.21 K/mm3 (0.00-0.68); EOSINOPHILS PERCENT AUTO 3 % (0-6); Hematocrit 44.2 % (37.0-53.0); Hemoglobin 14.3 g/dL (13.5-17.5); IMMATURE GRAN ABSOLUTE AUTO 0.02 K/mm3 (0.00-0.10); IMMATURE GRAN PERCENT AUTO 0 % (0-1); LYMPHOCYTES PERCENT AUTO 20 % (21-46); MONOCYTES ABSOLUTE AUTO 0.95 K/mm3 (0.16-1.47); MONOCYTES PERCENT AUTO 12 % (4-13); Mean Corpuscular HGB Conc 32.4 g/dL (31.5-36.5); Mean Corpuscular Volume 93 fL (80-100); Mean Platelet Volume 9.9 fL (9.1-12.4); NEUTROPHILS ABSOLUTE AUTO 5.19 K/mm3 (1.96-9.15); NEUTROPHILS PERCENT AUTO 65 % (41-73); Platelet Count 245 K/mm3 (150-400); RDW Standard Deviation 47.7 fL (35.1-46.3); Red Blood Cell Count 4.77 M/mm3 (4.30-5.90); White Blood Cell Count 8.02 K/mm3 (4.00-11.30)
--- NOTE | 2024-06-23 05:19 | NUR ---
SURFACE BOSS SUMMARY PT A/OX4. NO ACUTE EVENTS. PT ABLE TO MAKE NEEDS KNOWN. PT NPO AT MIDNIGHT FOR IR PROCEDURE. PT A BIT ANXIOUS T/O THE NIGHT. CALL LIGHT ACCESSIBLE. NEEDS ASSESSED AND MET T/O THE SHIFT. WCTM.
[2024-06-23 05:37] LABS: Bun/Creatinine Ratio 18.8 (12.0-20.0); Calcium, Blood 9.6 mg/dL (8.5-10.1); Creatinine, Blood 1.01 mg/dL (0.60-1.20); Potassium, Blood 4.1 mmol/L (3.5-5.5)
[2024-06-23 07:36] VITALS: BP 135/84
[2024-06-23] MEDS ORDERED: Lisinopril 20 MG Tab PO SCH (09:00)
[2024-06-23] MEDS ORDERED: Furosemide 10 MG / ML 2ML Vial IV SCH (09:00)
[2024-06-23] MEDS ORDERED: NS 1,000 ML IV ONE (12:59)
[2024-06-23 14:56] VITALS: BP 162/89
--- NOTE | 2024-06-23 19:29 | NUR ---
PT AND FAMILY SPENT MOST OF THE DAY NPO AND AWAITING FOR PROCEDURE, PT WAS VERY UPSET FOR THE DELAY. MD IN TO DISCUS PROCEDURE AND CANCELLED FOR TODAY. PTS RESPONSE WAS GOOD AND WAST TOO MAD SINCE HE WAS ABLE TO SPEAK WITH PT. REG DIET ORDERED AND WILL BE NPO AFTER MN. DRESSING TO BUTTOCKS CHANGED, MAO WELL, WOUNDS HEALING
[2024-06-23 19:31] VITALS: BP 126/83
[2024-06-24] VITALS (7 sets, daily range): BP systolic 123–144; BP diastolic 73–95
--- NOTE | 2024-06-24 05:22 | NUR ---
SHIFT SUMMARY NOC PT A/O X 4. PLEASANT AND COOPERATIVE WITH CARE. VSS. NO ACUTE EVENTS TO REPORT. PT HAS BEEN NPO SINCE MIDNIGHT IN PREPARATION FOR REVASCULARIZATION IN WELDER SETTER [employer] MACHINE TODAY ON L FOOT. PT HAS SLING IN PLACE FOR RUE FX, PT DECLINED PAIN RX WHEN ASSESSED. PT HAS SLEPT IN CHAIR FOR FULL DURATION OF SHIFT. PT HAS MEPILEX DRESSINGS IN PLACE ON STAGE 2 PRESSURE INJURY ON BUTTOCKS C/D/I. PT CURRENTLY RESTING WITH BED IN LOWEST POSITION, AND CALL LIGHT WITHIN REACH.
[2024-06-24] MEDS ORDERED: NS 500 ML IV ONE (06:57)
[2024-06-24] MEDS ORDERED: NS 1,000 ML IV ONE ×2 (06:57→12:27)
[2024-06-24] MEDS ORDERED: Nitroglycerin 2 MG/20 ML BTL ONE (06:57)
[2024-06-24] MEDS ORDERED: Heparin Sodium 1000 Units/ML 10ML MDV ONE ×2 (06:57→12:27)
[2024-06-24] MEDS ORDERED: FentaNYL Citrate 50 MCG/ML 2 ML Injection ONE ×2 (12:56→13:33)
[2024-06-24] MEDS ORDERED: Midazolam HCl 1MG / ML 2ML Vial ONE ×2 (12:56→13:33)
[2024-06-24] MEDS ORDERED: Enoxaparin 40 MG/0.4 ML SYR SC SCH (15:40)
--- NOTE | 2024-06-24 16:09 | NUR ---
ASSUMED CARE @ APPROX 1409 PT IS DROWSY BUT EASILY BECOMES ALERT TO VERBAL STIMULI, OBEYS COMMANDS AND ABLE TO MAKE NEEDS KNOWN. PT LAYING FLAT IN BED, EDUCATED TO TO REMAIN FLAT AND MOVE/BEND LEGS, PT VERBALIZED UNDERSTANDING, RIHGT GROIN SITE SOFT, NO SIGNS OF HEMATOMA AT THIS TIME. STRONG PEDAL AND RADIAL PULSES. VSS. BLACK 5TH TOE ON THE LEFT SIDE WITH SOME BLACK TISSUE ON THE GREAT TOE WELL. MILD AMOUNT EDEMA BLE THAT IS WORSE IN THE L BLE.
[2024-06-24 17:31] LABS: Magnesium, Blood 2.6 mg/dL (1.6-2.4); Potassium, Blood 4.2 mmol/L (3.5-5.5)
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
--- NOTE | 2024-06-24 22:54 | NUR ---
THIS RN ASSUMED CARE OF PT AT 1900. PT IS ALERT AND ORIENTED X4. FOLLOWING COMMANDS. PT HEART RATE IS IN THE 70s, BLOOD PRESSURE 137/82, PT DENIES ANY CHEST PAIN. PT SOUNDS CLEAR/DIMINISHED, ON ROOM AIR SATTING >95%, PT DENIES SHORTNESS OF BREATHE. PT DOES HAVE A FRACTURE OF THE LEFT ARM THAT IS IN A SLING, ALSO HAD A REVASCULARIZATION DURING DAY SHIFT, THEY WENT IN THROUGH RIGHT GROIN SITE, CLEAN, DRY AND INTACT WITH NO HEMATOMA PRESENT. PT IS NPO AFTER MIDNIGHT FOR PROCEDURE IN THE MORNING. NO NEW INTERVENTIONS AT THIS TIME. PLAN OF CARE CONTINUED.
[2024-06-25] VITALS (21 sets, daily range): BP systolic 90–151; BP diastolic 56–97
[2024-06-25 03:44] LABS: Hematocrit 42.8 % (37.0-53.0); Hemoglobin 13.9 g/dL (13.5-17.5); Mean Corpuscular HGB 30.3 pg (26.0-34.0); Mean Corpuscular HGB Conc 32.5 g/dL (31.5-36.5); Mean Corpuscular Volume 93 fL (80-100); Mean Platelet Volume 10.1 fL (9.1-12.4); Platelet Count 229 K/mm3 (150-400); RDW Coefficient Variation 13.9 % (11.7-14.2); RDW Standard Deviation 48.4 fL (35.1-46.3); Red Blood Cell Count 4.59 M/mm3 (4.30-5.90); White Blood Cell Count 8.37 K/mm3 (4.00-11.30)
[2024-06-25 04:05] LABS: Bun/Creatinine Ratio 29.1 (12.0-20.0); Calcium, Blood 8.8 mg/dL (8.5-10.1); Creatinine, Blood 0.96 mg/dL (0.60-1.20); Potassium, Blood 4.1 mmol/L (3.5-5.5)
--- NOTE | 2024-06-25 04:25 | NUR ---
PT SUMMARY. PT IS LAYING IN BED PEACEFULLY. PT GROIN SITE IS STILL CLEAN, DRY AND INTACT WITH NO HEMATOMA. VITAL SIGNS HAVE BEEN STABLE THROUGHOUT THE NIGHT, NO NEW EVENTS TO REPORT OVERNIGHT. PT IS NPO FOR PROCEDURE ON LEFT PINKY TOE. PLAN OF CARE CONTINUED.
--- NOTE | 2024-06-25 09:57 | NUR ---
am note this rn assumed care at 0700. vital signs stable. medical status with tele. patient is alert and oriented x4. neuro is intact. patient is able to make needs known and uses call light appropriately. patient denies pain, chest pain/pressure or shortness of breath. see shift assessment for further detials. patient is npo for left toe pinky amputation. patient expressed this morning frustration with still being in the hospital and discussing the delays that have occured with his revasc. this rn provided therapuetic communication and active listening. md ramos in the room and discussed plan of care. plan of care is up to date. patient is standby assist to the bathroom and into the chair. patient daughter currently in the room.
[2024-06-25] MEDS ORDERED: Lactated Ringer's 1,000 ML IV SCH (10:15)
[2024-06-25] MEDS ORDERED: Bupivacaine 0.5% HCl 5 MG/ML 30MLVIAL ONE (10:40)
[2024-06-25] MEDS ORDERED: NS 500 ML IV SCH (10:45)
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
[2024-06-25] MEDS ORDERED: FentaNYL Citrate 50 MCG/ML 2 ML Injection ONE (10:53)
[2024-06-25] MEDS ORDERED: propofoL 20 ML IV ONE (10:53)
[2024-06-25] MEDS ORDERED: ePHEDrine Sulfate 50 MG/ML 1ML Injection ONE (11:06)
[2024-06-25] MEDS ORDERED: Lidocaine HCl 2% 20 ML MDV ONE (11:11)
--- NOTE | 2024-06-25 12:32 | NUR ---
UPDATE patient back from day surgery with left toe amputation. dressing in place. family at bedside.vitals stable.
--- NOTE | 2024-06-25 16:51 | NUR ---
shift summary patient neuro remains intact. vtials remain stable. no acute changes since previous note. plan remains up to date
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
[2024-06-25] MEDS ORDERED: Lactobacil 2-S.Thermo-Bifido 1 1 Cap PO SCH (21:00)
[2024-06-26 02:09] VITALS: BP 100/73
--- NOTE | 2024-06-26 05:44 | NUR ---
SHIFT SUMMARY: Pt admitted for Dry gangrene and is a full code. Is alert and able to make needs known. ADLs have been SBA during shift. Pain has been managed with PRN pain management. Dressing to left foot CDI.
[2024-06-26 07:35] VITALS: BP 107/71
[2024-06-26] MEDS ORDERED: ATOR20 PO (11:06)
[2024-06-26] MEDS ORDERED: Acetaminophen650 M1 PO (11:06)
[2024-06-26] MEDS ORDERED: Prinivil10 MG PO (11:07)
[2024-06-26] MEDS ORDERED: CLOP75 PO (11:08)
[2024-06-26] MEDS ORDERED: VISBIOME 112.51 EACH PO (11:08)
[2024-06-26] MEDS ORDERED: PANT20 PO (11:09)
[2024-06-26] MEDS ORDERED: DOXY100 PO (11:09)
[2024-06-26] MEDS ORDERED: MIRALAX17 GM PO (11:09)
--- NOTE | 2024-06-26 12:47 | NUR ---
SHIFT/DISCHARGE SUMMARY: PATIENT A/OX4, CALM, PLEASANT AND COOPERATIVE c CARE. PATIENT DENIES CP/PRESSURE, SOB, N/V AND DIZZINESS. PATIENT RECEIVED IV ABX/SCHEDULED MEDS PER EMAR. VITAL SIGNS REVIEWED. R ARM SLING AND L FOOT BOOT IN PLACED. DRESSING TO COCCYX AND L FOOT C/D/I. DR. SALVADOR CAME BY THIS AM AND SPOKE TO PATIENT. PER DR. SALVADOR IT'S OKAY FOR HIM TO GO HOME TODAY AND FOLLOW UP AT HIS OFFICE IN A WEEK. PIV TO L AC DC'D. PATIENT DISCHARGE HOME c [facility]. DISCHARGE INSTRUCTIONS PACKET GIVEN TO PATIENT. PATIENT EDUCATED ON ADMITTING DX'S, POST OP SX TO L FOOT, NEW RX AND TO F/U c IR, ORTHOPEDICS AND PCP. PATIENT AND FAMILY AT BEDSIDE VERBALIZED UNDERSTANDING AND NO FURTHER QUESTIONS. RX WAS FAXED TO PATIENT PREFERRED [facility], THEN WAS REFAXED TO [facility] BECAUSE [facility] IS CLOSED TODAY. ALL PERSONAL BELONGINGS WERE SENT c THE PATIENT. PATIENT LEFT THE ROOM AT 1205 AND TRANSPORTED VIA WHEELCHAIR BY SKYLAR ALFARO TO PATIENT ENTRANCE.
== END 2024-06-26 12:30 | disposition home health service (06) | DRG 254 ==
LOC: ER 15:30 → MEDS 17:58 → PCU 06-24 14:06 → MEDS 06-25 21:17
PROVIDERS: Internal Medicine; Nurse Practitioner Acute Care; Student in an Organized Health Care Education/Training Program; ADMIT Internal Medicine
PROC: 047L3DZ Dilation of Left Femoral Artery with Intraluminal Device, Percutaneous Approach (ICD-10-PCS; principal; 2024-06-24)
PROC: B41DZZZ Fluoroscopy of Aorta and Bilateral Lower Extremity Arteries (ICD-10-PCS; 2024-06-24)
PROC: 0Y6Y0Z0 Detachment at Left 5th Toe, Complete, Open Approach (ICD-10-PCS; 2024-06-25)
DX: I70.262 Atherosclerosis of native arteries of extremities with gangrene, left leg (principal); K21.9 Gastro-esophageal reflux disease without esophagitis; I10 Essential (primary) hypertension; F17.210 Nicotine dependence, cigarettes, uncomplicated; Z79.899 Other long term (current) drug therapy
CPT/HCPCS: 36415; 37226; 73030; 73660; 75625; 75635; 75716; 75774; 76937; 80048; 80053; 80061; 83735; 83880; 84132; 85025; 85027; 99152; 99153; 99284-25; A9270; C1725; C1760; C1769; C1874; C1887; C1894; J0696; J1644; J1650; J1940; J2250; J2704; J3010; J7030; J7050; Q9967

== ENCOUNTER 2024-07-16 11:30 | Emergency (ER) | payer OTHER, MEDICARE ==
[~2024-07-16] VITALS: Ht 177.8 cm; Wt 90.7 kg
[~2024-07-16 11:30] MED LIST changes: +ATOR20 PO; +Acetaminophen650 M1 PO; +CLOP75 PO; +DOXY100 PO; +PANT20 PO; +Prinivil10 MG PO; +VISBIOME 112.51 EACH PO
[2024-07-16 11:40] VITALS: BP 140/77
[2024-07-16] MEDS ORDERED: Acetaminophen 500 MG Tab PO ONE (14:40)
[2024-07-16] MEDS ORDERED: ACET500 PO (14:41)
== END 2024-07-16 14:58 | disposition home or self-care (01) ==
LOC: ER 11:30
DX: M25.512 Pain in left shoulder (principal); I10 Essential (primary) hypertension; K21.9 Gastro-esophageal reflux disease without esophagitis; F17.210 Nicotine dependence, cigarettes, uncomplicated; Z79.02 Long term (current) use of antithrombotics/antiplatelets; Z79.899 Other long term (current) drug therapy
CPT/HCPCS: 73030; 99283-25; A9270

== ENCOUNTER 2024-08-26 07:11 | Day surgery (SDC) | payer MEDICARE ==
[~2024-08-26] VITALS: Ht 177.8 cm; Wt 93.0 kg
[2024-08-26] VITALS (9 sets, daily range): BP systolic 128–171; BP diastolic 68–103
[~2024-08-26 07:11] MED LIST changes: +ACET500 PO
[2024-08-26] MEDS ORDERED: NS 1,000 ML IV ONE ×3 (07:55→08:36)
[2024-08-26] MEDS ORDERED: NS 100 ML IV ONE (07:55)
[2024-08-26] MEDS ORDERED: Heparin Sodium 1000 Units/ML 10ML MDV ONE ×2 (07:55→08:36)
[2024-08-26] MEDS ORDERED: NS 250 ML IV ONE (07:55)
[2024-08-26] MEDS ORDERED: Midazolam HCl 1MG / ML 2ML Vial ONE ×2 (08:36→09:44)
[2024-08-26] MEDS ORDERED: FentaNYL Citrate 50 MCG/ML 2 ML Injection ONE ×2 (08:36→09:45)
[2024-08-26] MEDS ORDERED: Nitroglycerin 2 MG/20 ML BTL ONE (09:35)
--- NOTE | 2024-08-26 10:10 | NUR ---
ASSUMED CARE OF PT POST PROCEDURE. PT ALERT AND ORIENTED; DENIES PAIN POST PROCEDURE. MONITOR SR WITH IVCD 80'S, B/P 128/78, SPO2 92 % RA. L GROIN NO SWELLING/HEMATOMA, TEGADERM DRSG INTACT; LLE: DP 2+, PT DOP.
--- NOTE | 2024-08-26 11:05 | NUR ---
PT HOB ELEVATED, SITE UNCHANGED.
--- NOTE | 2024-08-26 12:45 | NUR ---
PT AMB TO BATHROOM, GAIT STEADY; SITE UNCHANGED WITH ACTIVITY. PT DRESSED SELF WITHOUT ISSUE, SITE UNCHNAGED; IV REMOVED-CANNULA INTACT.
--- NOTE | 2024-08-26 12:56 | NUR ---
PT AND DAUGHTER RECEIVED DISCHARGE INSTRUCTIONS, MED LIST AND AFTER CARE INSTRUCTIONS; VERBALIZED GOOD UNDERSTANDING. PT LEFT FACILITY VIA W/C, CONDITION STABLE.
== END 2024-08-26 12:56 | disposition home or self-care (01) ==
LOC: MHTC 07:11
DX: I73.9 Peripheral vascular disease, unspecified (principal); K21.9 Gastro-esophageal reflux disease without esophagitis; I10 Essential (primary) hypertension; F17.210 Nicotine dependence, cigarettes, uncomplicated; Z79.899 Other long term (current) drug therapy
CPT/HCPCS: 37220; 37226; 37228; 75625; 75716; 75774; 76937; 93005; 93010; 99152; 99153; C1725; C1760; C1769; C1874; C1887; C1894; C2623; J1644; J2250; J3010; J7030; J7050; Q9967

== ENCOUNTER 2024-09-08 09:06 | Day surgery (SDC) | payer MEDICARE ==
[~2024-09-08] VITALS: Ht 177.8 cm; Wt 91.2 kg
[~2024-09-08 09:06] MED LIST changes: +EPINEPhrine HCl 1 MG/ML 1ML Amp ONE; +Ropivacaine 0.5% HCL/PF 5 MG/ML 30ML Vial ONE
[2024-09-08] MEDS ORDERED: CeFAZolin Sodium 2,000 MG VIAL ONE (09:18)
[2024-09-08] MEDS ORDERED: propofoL 20 ML IV ONE (09:28)
[2024-09-08] MEDS ORDERED: FentaNYL Citrate 50 MCG/ML 2 ML Injection IV ONE (09:28)
[2024-09-08] MEDS ORDERED: FISH OIL 1,0001 EA10 PO (09:29)
[2024-09-08] MEDS ORDERED: Ipratropium/Albuterol SulF 2.5-0.5MG/3 ML Amp ONE (09:37)
[2024-09-08] MEDS ORDERED: Lactated Ringer's 1,000 ML IV ONE ×2 (09:47→12:10)
--- NOTE | 2024-09-08 11:09 | NUR ---
09/08/24 1109 Jacy Sorensen DAUGHTER AT BEDSIDE
[2024-09-08 11:26] VITALS: BP 151/96
== END 2024-09-08 11:35 | disposition home or self-care (01) ==
LOC: ORSCSDS 09:06
PROVIDERS: Orthopaedic Surgery
PROC: 0RPJ04Z Removal of Internal Fixation Device from Right Shoulder Joint, Open Approach (ICD-10-PCS; principal; 2024-09-08 10:30)
DX: T84.9XXA Unspecified complication of internal orthopedic prosthetic device, implant and graft, initial encounter (principal); Z96.9 Presence of functional implant, unspecified; I10 Essential (primary) hypertension; J44.9 Chronic obstructive pulmonary disease, unspecified; F17.210 Nicotine dependence, cigarettes, uncomplicated; K21.9 Gastro-esophageal reflux disease without esophagitis; I73.9 Peripheral vascular disease, unspecified; Z79.02 Long term (current) use of antithrombotics/antiplatelets; Z79.899 Other long term (current) drug therapy
CPT/HCPCS: C1713; J0171; J0690; J2704; J2795; J3010; J7120